=== PATIENT | female | born 1985 | race Caucasian/White ===

== ENCOUNTER → 2016-07-15 | Outpatient (CLI) | payer OTHER ==
[~2016-07-15] MED LIST: AMITRIPTYLINE25 MG PO; ATARAX10 MG PO; CIPRO 500MG TA500 MG PO; FLORINEF ACETA0.1 MG PO; HYOPHEN1 TAB PO; METOPROLOL SUCC25 M1 PO; MUCINEX DM 30 M1 TE1 PO; PREDNISONE 5MG5 MG PO; TESSALON PERLE100 MG PO; VENTOLIN0.09 MG INH
== END ==
LOC: LAB 09:00
DX: R30.0 Dysuria (principal)

== ENCOUNTER → 2016-07-20 | Outpatient (CLI) | payer OTHER | LOC: LAB 12:57 | DX: Z09 Encounter for follow-up examination after completed treatment for conditions other than malignant neoplasm (principal); Z20.6 Contact with and (suspected) exposure to human immunodeficiency virus [HIV] ==

== ENCOUNTER → 2016-07-21 | Outpatient (CLI) | payer OTHER ==
[2016-07-21 14:27] VITALS: BP 115/85
== END ==
LOC: AMSURD 12:28
DX: R13.10 Dysphagia, unspecified (principal); R55 Syncope and collapse; K31.89 Other diseases of stomach and duodenum; K22.4 Dyskinesia of esophagus

== ENCOUNTER → 2016-07-27 | Outpatient (CLI) | payer OTHER | LOC: LAB 09:06 | DX: R13.14 Dysphagia, pharyngoesophageal phase (principal) ==

== ENCOUNTER → 2016-09-06 | Outpatient (CLI) | payer OTHER | LOC: VAS 17:06 | DX: R06.09 Other forms of dyspnea (principal); I34.0 Nonrheumatic mitral (valve) insufficiency ==

== ENCOUNTER → 2016-09-23 | Outpatient (CLI) | payer OTHER | LOC: RAD 08:47 | DX: R06.00 Dyspnea, unspecified (principal) ==

== ENCOUNTER → 2016-10-04 | Outpatient (CLI) | payer OTHER ==
[2016-07-21 14:27] VITALS: BP 115/85
== END ==
LOC: LAB 11:10
DX: E27.40 Unspecified adrenocortical insufficiency (principal)

== ENCOUNTER → 2016-10-18 | Outpatient (CLI) | payer OTHER ==
[2016-07-21 14:27] VITALS: BP 115/85
== END ==
LOC: LAB 11:01
DX: Z11.4 Encounter for screening for human immunodeficiency virus [HIV] (principal); B19.20 Unspecified viral hepatitis C without hepatic coma; Z02.83 Encounter for blood-alcohol and blood-drug test

== ENCOUNTER → 2016-12-06 | Outpatient (CLI) | payer OTHER ==
[2016-07-21 14:27] VITALS: BP 115/85
== END ==
LOC: LAB 12:23
DX: R30.0 Dysuria (principal)

== ENCOUNTER → 2017-01-24 | Outpatient (CLI) | payer OTHER ==
[2016-07-21 14:27] VITALS: BP 115/85
== END ==
LOC: LAB 06:16
DX: R30.0 Dysuria (principal); R35.0 Frequency of micturition

== ENCOUNTER → 2017-10-24 | Outpatient (CLI) | payer OTHER ==
[2016-07-21 14:27] VITALS: BP 115/85
[2017-10-24 11:43] LABS: URINE APPEARANCE CLEAR; URINE BILIRUBIN NEGATIVE (NEGATIVE); URINE COLOR YELLOW; URINE GLUCOSE NEGATIVE (NEGATIVE); URINE KETONE NEGATIVE (NEGATIVE); URINE PROTEIN(semi-quant) NEGATIVE (NEGATIVE)
[2017-10-24 11:44] LABS: URINE BLOOD 50 ery/uL (NEGATIVE); URINE LEUKOCYTE ESTERASE 1+ (NEGATIVE); URINE NITRATE NEGATIVE (NEGATIVE); URINE UROBILINOGEN NORMAL (NORMAL); URINE WBC 16-30 /hpf (0-3)
== END ==
LOC: LAB 11:40
PROVIDERS: Internal Medicine
DX: R31.9 Hematuria, unspecified (principal); N30.10 Interstitial cystitis (chronic) without hematuria

== ENCOUNTER → 2018-01-17 | Outpatient (CLI) | payer OTHER ==
[2016-07-21 14:27] VITALS: BP 115/85
[2018-01-17 12:41] LABS: URINE APPEARANCE CLEAR; URINE COLOR YELLOW
[2018-01-17 12:42] LABS: URINE BILIRUBIN NEGATIVE (NEGATIVE); URINE BLOOD 250 ery/uL (NEGATIVE); URINE GLUCOSE NEGATIVE (NEGATIVE); URINE KETONE NEGATIVE (NEGATIVE); URINE LEUKOCYTE ESTERASE 1+ (NEGATIVE); URINE NITRATE NEGATIVE (NEGATIVE); URINE PROTEIN(semi-quant) TRACE mg/dL (NEGATIVE); URINE UROBILINOGEN NORMAL (NORMAL)
== END ==
LOC: LAB 12:38
PROVIDERS: Nurse Practitioner
DX: R39.15 Urgency of urination (principal); R35.0 Frequency of micturition; R30.0 Dysuria

== ENCOUNTER → 2018-02-16 | Outpatient (CLI) | payer OTHER ==
[2016-07-21 14:27] VITALS: BP 115/85
== END ==
LOC: LAB 08:09
DX: Z00.00 Encounter for general adult medical examination without abnormal findings (principal)

== ENCOUNTER → 2018-09-28 | Outpatient (CLI) | payer OTHER ==
[2016-07-21 14:27] VITALS: BP 115/85
[2018-09-28 13:10] LABS: CLUE CELLS NOT OBSERVED (Not Observd)
== END ==
LOC: LAB 13:08
PROVIDERS: Physician Assistant
DX: R10.9 Unspecified abdominal pain (principal)
CPT/HCPCS: Q0111

== ENCOUNTER 2018-09-29 11:26 | Emergency (ER) | payer OTHER ==
[2016-07-21 14:27] VITALS: BP 115/85
== END 2018-09-29 13:50 | disposition left against medical advice (07) ==
LOC: ED 11:26
DX: Z72.89 Other problems related to lifestyle (principal)

== ENCOUNTER → 2018-10-01 | Outpatient (CLI) | payer OTHER ==
[2016-07-21 14:27] VITALS: BP 115/85
== END ==
LOC: RAD 13:32
DX: N83.201 Unspecified ovarian cyst, right side (principal); N94.10 Unspecified dyspareunia; Z90.710 Acquired absence of both cervix and uterus

== ENCOUNTER → 2019-04-09 | Outpatient (CLI) | payer OTHER ==
[2016-07-21 14:27] VITALS: BP 115/85
[2019-04-09 06:43] LABS: EOS # 0.1 (0.04-0.40); EOS % 1.6 % (1.0-5.0); HEMATOCRIT 45.6 % (37.0-47.0); HEMOGLOBIN 15.1 g/dL (12.5-16.0); LYMPH# 2.8 (1.50-4.00); MEAN CELL VOLUME 90 fl (78-100); MEAN CORPUSCULAR HEMOGLOBIN 30 pg (27-31); MEAN CORPUSCULAR HGB CONC 33 g/dL (33-37); MONO # 0.7 (0.20-0.80); NEU # 3.3 (1.40-6.50); PLATELET COUNT 279 K/mm3 (130-400); RED BLOOD COUNT 5.06 M/mm3 (4.10-5.30); RED CELL DISTRIBUTION WIDTH 12.6 % (11.5-14.5); WHITE BLOOD COUNT 6.9 K/mm3 (4.8-10.8)
[2019-04-09 06:45] LABS: ALBUMIN 4.5 g/dL (3.5-5.0); POTASSIUM 4.5 mmol/L (3.5-5.1)
[2019-04-09 06:46] LABS: CALCIUM 9.7 mg/dL (8.3-10.5)
[2019-04-09 06:47] LABS: TOTAL PROTEIN 7.5 g/dL (6.4-8.3)
[2019-04-09 07:51] LABS: ERYTHROCYTE SEDIMENTATION RATE 2 mm/hr (0-20)
[2019-04-09 11:04] LABS: URINE APPEARANCE CLEAR; URINE BILIRUBIN NEGATIVE (NEGATIVE); URINE BLOOD 50 ery/uL (NEGATIVE); URINE COLOR YELLOW; URINE GLUCOSE NEGATIVE (NEGATIVE); URINE KETONE NEGATIVE (NEGATIVE); URINE LEUKOCYTE ESTERASE NEGATIVE (NEGATIVE); URINE MUCUS PRESENT (NOT PRESENT); URINE NITRATE NEGATIVE (NEGATIVE); URINE PROTEIN(semi-quant) NEGATIVE (NEGATIVE); URINE UROBILINOGEN NORMAL (NORMAL); URINE WBC 0-1 /hpf (0-3)
== END ==
LOC: LAB 06:36
PROVIDERS: Internal Medicine
DX: Z00.00 Encounter for general adult medical examination without abnormal findings (principal)

== ENCOUNTER → 2019-05-15 | Outpatient (CLI) | payer OTHER ==
[~2019-05-15] VITALS: Ht 170.2 cm; Wt 53.2 kg
[~2019-05-15] MED LIST changes: +CYCLOBENZ5 MG PO; +FLORINEF 00.1 MG/TAB PO; +VALIUM 5MG T5 MG/TAB PO
[2019-05-15 11:14] VITALS: BP 137/61
[2019-05-15 11:59] VITALS: BP 108/63
== END ==
LOC: AMSURD 10:23
DX: R51 Headache (principal)
CPT/HCPCS: J1200; J2405; J7030

== ENCOUNTER 2019-05-16 03:32 | Emergency (ER) | payer OTHER ==
[~2019-05-16 03:32] MED LIST changes: -CYCLOBENZ5 MG PO; -FLORINEF 00.1 MG/TAB PO; -VALIUM 5MG T5 MG/TAB PO
[2019-05-16] MEDS ORDERED: FLORINEF 00.1 MG/TAB PO (03:45)
[2019-05-16] MEDS ORDERED: CYCLOBENZ5 MG PO (03:45)
[2019-05-16 04:47] LABS: EOS # 0.1 (0.04-0.40); EOS % 1.2 % (1.0-5.0); HEMATOCRIT 36.5 % (37.0-47.0); LYMPH# 2.4 (1.50-4.00); MEAN CELL VOLUME 93 fl (78-100); MEAN CORPUSCULAR HEMOGLOBIN 31 pg (27-31); MEAN CORPUSCULAR HGB CONC 33 g/dL (33-37); MEAN PLATELET VOLUME 8.7 fl (7.4-10.4); MONO # 0.6 (0.20-0.80); NEU # 2.8 (1.40-6.50); PLATELET COUNT 221 K/mm3 (130-400); RED BLOOD COUNT 3.94 M/mm3 (4.10-5.30); RED CELL DISTRIBUTION WIDTH 12.5 % (11.5-14.5); WHITE BLOOD COUNT 5.8 K/mm3 (4.8-10.8)
[2019-05-16 04:54] LABS: ALBUMIN 3.6 g/dL (3.5-5.0); POTASSIUM 3.8 mmol/L (3.5-5.1)
[2019-05-16 04:55] LABS: CALCIUM 8.6 mg/dL (8.3-10.5)
[2019-05-16 04:56] LABS: TOTAL PROTEIN 5.6 g/dL (6.4-8.3)
[2019-05-16 04:58] LABS: TOTAL BILIRUBIN 0.5 mg/dL (0.2-1.2)
[2019-05-16] MEDS ORDERED: VALIUM 5MG T5 MG/TAB PO (05:23)
[2019-05-16 05:27] VITALS: BP 117/82
== END 2019-05-16 05:28 | disposition home or self-care (01) ==
LOC: ED 03:32
PROVIDERS: Physician Assistant
DX: R51 Headache (principal); M62.838 Other muscle spasm; Z88.8 Allergy status to other drugs, medicaments and biological substances; Z90.710 Acquired absence of both cervix and uterus

== ENCOUNTER → 2019-05-24 | Outpatient (CLI) | payer OTHER ==
[2019-05-16 05:27] VITALS: BP 117/82
[~2019-05-24] MED LIST changes: +CYCLOBENZ5 MG PO; +FLORINEF 00.1 MG/TAB PO; +VALIUM 5MG T5 MG/TAB PO
== END ==
LOC: RAD 14:18
DX: S16.1XXA Strain of muscle, fascia and tendon at neck level, initial encounter (principal); M41.84 Other forms of scoliosis, thoracic region

== ENCOUNTER → 2019-05-29 | Outpatient (CLI) | payer OTHER ==
[2019-05-16 05:27] VITALS: BP 117/82
== END ==
LOC: RAD 08:02
DX: M47.812 Spondylosis without myelopathy or radiculopathy, cervical region (principal); G43.909 Migraine, unspecified, not intractable, without status migrainosus

== ENCOUNTER 2019-06-18 14:30 | Outpatient (RCR) | payer OTHER | END 2019-06-18 15:00 | disposition still patient (30) | LOC: PT 14:30 | DX: G43.909 Migraine, unspecified, not intractable, without status migrainosus (principal); S16.1XXA Strain of muscle, fascia and tendon at neck level, initial encounter; M54.6 Pain in thoracic spine ==

== ENCOUNTER → 2019-07-01 | Outpatient (CLI) | payer OTHER | LOC: RAD 10:26 | DX: S16.1XXA Strain of muscle, fascia and tendon at neck level, initial encounter (principal) ==

== ENCOUNTER → 2019-07-23 | Outpatient (CLI) | payer OTHER ==
[2019-07-23 14:49] LABS: HEMOGLOBIN 14.7 g/dL (12.5-16.0); MEAN CELL VOLUME 92 fl (78-100); MEAN CORPUSCULAR HEMOGLOBIN 30 pg (27-31); MEAN CORPUSCULAR HGB CONC 33 g/dL (33-37); MEAN PLATELET VOLUME 8.8 fl (7.4-10.4); PLATELET COUNT 273 K/mm3 (130-400); RED CELL DISTRIBUTION WIDTH 13.2 % (11.5-14.5)
[2019-07-23 15:00] LABS: POTASSIUM 4.4 mmol/L (3.5-5.1)
[2019-07-23 15:02] LABS: TOTAL PROTEIN 7.8 g/dL (6.4-8.3)
[2019-07-23 15:04] LABS: TOTAL BILIRUBIN 0.6 mg/dL (0.2-1.2)
[2019-07-23 15:33] LABS: URINE APPEARANCE CLEAR; URINE BILIRUBIN NEGATIVE (NEGATIVE); URINE BLOOD TRACE (NEGATIVE); URINE COLOR YELLOW; URINE GLUCOSE NEGATIVE (NEGATIVE); URINE KETONE NEGATIVE (NEGATIVE); URINE LEUKOCYTE ESTERASE NEGATIVE (NEGATIVE); URINE NITRATE NEGATIVE (NEGATIVE); URINE PROTEIN(semi-quant) TRACE mg/dL (NEGATIVE); URINE UROBILINOGEN NORMAL (NORMAL); URINE WBC 0-1 /hpf (0-3)
[2019-07-24 06:24] LABS: BAND 1 % (0-10)
[2019-07-24 06:25] LABS: LYMPHOCYTE 14 % (20-51); MONOCYTE 4 % (3-10); NEUTROPHILS 81 % (42-75)
[2019-07-24 14:00] LABS: ANA SCREEN with REFLEX Negative (Negative)
== END ==
LOC: LAB 14:38
PROVIDERS: Nurse Practitioner
DX: R10.9 Unspecified abdominal pain (principal)

== ENCOUNTER → 2019-07-26 | Outpatient (CLI) | payer OTHER | LOC: RAD 09:03 | DX: N83.8 Other noninflammatory disorders of ovary, fallopian tube and broad ligament (principal); Z90.710 Acquired absence of both cervix and uterus | CPT/HCPCS: Q9967 ==

== ENCOUNTER → 2019-07-29 | Outpatient (CLI) | payer OTHER ==
[2019-07-29 13:24] LABS: POTASSIUM 4.4 mmol/L (3.5-5.1)
[2019-07-29 13:32] LABS: MAGNESIUM 2.16 mg/dL (1.60-2.60)
== END ==
LOC: LAB 13:08
PROVIDERS: Internal Medicine
DX: E27.40 Unspecified adrenocortical insufficiency (principal)

== ENCOUNTER → 2019-08-01 | Outpatient (CLI) | payer OTHER ==
[2019-08-02 00:35] LABS: CALCIUM, IONIZED, SERUM 1.41 mmol/L (1.19-1.41)
== END ==
LOC: LAB 12:10
PROVIDERS: Internal Medicine
DX: R25.3 Fasciculation (principal); R53.1 Weakness; R53.83 Other fatigue; R63.4 Abnormal weight loss

== ENCOUNTER → 2019-08-05 | Outpatient (CLI) | payer OTHER | LOC: LAB 16:11 | DX: Z01.89 Encounter for other specified special examinations (principal) ==

== ENCOUNTER → 2019-08-14 | Outpatient (CLI) | payer OTHER | LOC: RAD 09:52 | DX: M62.81 Muscle weakness (generalized) (principal); R51 Headache; R25.3 Fasciculation | CPT/HCPCS: A9585 ==

== ENCOUNTER → 2019-10-03 | Outpatient (CLI) | payer OTHER ==
[~2019-10-03] VITALS: Ht 170.2 cm; Wt 53.2 kg
[2019-10-03 13:10] VITALS: BP 110/56
[2019-10-03 13:20] VITALS: BP 110/56
[2019-10-03 14:39] VITALS: BP 108/68
[2019-10-04 17:49] LABS: ADRENOCORTICOTROPIC HORMONE 16 pg/mL (5-27)
== END ==
LOC: AMSURD 12:53 → LAB 12:53
PROVIDERS: Internal Medicine
DX: E27.1 Primary adrenocortical insufficiency (principal)
CPT/HCPCS: J0834

== ENCOUNTER → 2019-11-29 | Outpatient (CLI) | payer OTHER ==
[2019-10-03 14:39] VITALS: BP 108/68
== END ==
LOC: LAB 07:50
DX: M79.10 Myalgia, unspecified site (principal); R19.7 Diarrhea, unspecified; Z56.89 Other problems related to employment; Z20.828 Contact with and (suspected) exposure to other viral communicable diseases

== ENCOUNTER → 2020-01-08 | Outpatient (CLI) | payer OTHER ==
[2019-10-03 14:39] VITALS: BP 108/68
== END ==
LOC: LAB 13:23
DX: G72.9 Myopathy, unspecified (principal)

== ENCOUNTER → 2020-01-14 | Outpatient (CLI) | payer OTHER ==
[2019-10-03 14:39] VITALS: BP 108/68
== END ==
LOC: AMSURD 13:05
DX: Z01.812 Encounter for preprocedural laboratory examination (principal)

== ENCOUNTER → 2020-02-10 | Outpatient (CLI) | payer OTHER ==
[2019-10-03 14:39] VITALS: BP 108/68
[2020-02-10 07:28] LABS: EOS # 0.1 (0.04-0.40); EOS % 1.7 % (1.0-5.0); HEMOGLOBIN 13.8 g/dL (12.5-16.0); LYMPH# 2.3 (1.50-4.00); MEAN CELL VOLUME 91 fl (78-100); MEAN CORPUSCULAR HEMOGLOBIN 30 pg (27-31); MEAN CORPUSCULAR HGB CONC 33 g/dL (33-37); MEAN PLATELET VOLUME 8.9 fl (7.4-10.4); MONO # 0.6 (0.20-0.80); PLATELET COUNT 267 K/mm3 (130-400); RED CELL DISTRIBUTION WIDTH 12.4 % (11.5-14.5)
[2020-02-10 07:41] LABS: ALBUMIN 4.2 g/dL (3.5-5.0); POTASSIUM 3.8 mmol/L (3.5-5.1); SODIUM 140 mmol/L (136-145)
[2020-02-10 07:42] LABS: CALCIUM 8.9 mg/dL (8.3-10.5)
[2020-02-10 07:44] LABS: GLUCOSE 76 mg/dL (65-105); TOTAL PROTEIN 6.7 g/dL (6.4-8.3)
[2020-02-10 07:45] LABS: CARBON DIOXIDE 25 mmol/L (22-29); TOTAL BILIRUBIN 0.4 mg/dL (0.2-1.2)
[2020-02-10 07:49] LABS: AST-SGOT 23 U/L (5-34)
[2020-02-10 07:50] LABS: ALT/SGPT 20 U/L (0-55)
[2020-02-10 07:51] LABS: MAGNESIUM 2.09 mg/dL (1.60-2.60)
[2020-02-10 08:18] LABS: ERYTHROCYTE SEDIMENTATION RATE 0 mm/hr (0-20)
[2020-02-10 18:29] LABS: CALCIUM, IONIZED, SERUM 1.31 mmol/L (1.19-1.41)
== END ==
LOC: LAB 07:07
PROVIDERS: Internal Medicine
DX: M79.10 Myalgia, unspecified site (principal); R25.3 Fasciculation; R10.9 Unspecified abdominal pain; R63.4 Abnormal weight loss; R53.1 Weakness; R53.83 Other fatigue

== ENCOUNTER → 2020-08-14 | Outpatient (CLI) | payer OTHER ==
[2019-10-03 14:39] VITALS: BP 108/68
[~2020-08-14] MED LIST changes: +FIORICET 325 MG1 TAB PO; +ZOLOFT 50MG50 MG PO
== END ==
LOC: RAD 08:01
DX: M48.07 Spinal stenosis, lumbosacral region (principal); M41.84 Other forms of scoliosis, thoracic region

== ENCOUNTER → 2020-09-16 | Outpatient (CLI) | payer OTHER ==
[2019-10-03 14:39] VITALS: BP 108/68
[2020-09-16 14:06] LABS: ALBUMIN 4.7 g/dL (3.5-5.0); CALCIUM 9.4 mg/dL (8.3-10.5); HEMATOCRIT 45.9 % (37.0-47.0); HEMOGLOBIN 14.6 g/dL (12.5-16.0); MEAN CELL VOLUME 92 fl (78-100); MEAN CORPUSCULAR HEMOGLOBIN 29 pg (27-31); MEAN CORPUSCULAR HGB CONC 32 g/dL (33-37); PLATELET COUNT 255 K/mm3 (130-400); POTASSIUM 4.5 mmol/L (3.5-5.1); RED BLOOD COUNT 4.99 M/mm3 (4.10-5.30); RED CELL DISTRIBUTION WIDTH 13.5 % (11.5-14.5); TOTAL BILIRUBIN 0.4 mg/dL (0.2-1.2); TOTAL PROTEIN 7.7 g/dL (6.4-8.3); WHITE BLOOD COUNT 11.8 K/mm3 (4.8-10.8)
[2020-09-16 14:07] LABS: BAND 6 % (0-10); LYMPHOCYTE 12 % (20-51); MONOCYTE 4 % (3-10); NEUTROPHILS 78 % (42-75)
== END ==
LOC: LAB 13:57 → RAD 13:57
PROVIDERS: Physician Assistant
DX: R10.9 Unspecified abdominal pain (principal); R19.7 Diarrhea, unspecified
CPT/HCPCS: Q9967

== ENCOUNTER → 2020-09-21 | Outpatient (CLI) | payer OTHER ==
[2019-10-03 14:39] VITALS: BP 108/68
== END ==
LOC: LAB 07:35
DX: R19.7 Diarrhea, unspecified (principal)

== ENCOUNTER 2020-11-08 19:05 | Emergency (ER) | payer OTHER ==
[~2020-11-08 19:05] MED LIST changes: -FIORICET 325 MG1 TAB PO; -ZOLOFT 50MG50 MG PO
[2020-11-08] MEDS ORDERED: ZOLOFT 50MG50 MG PO (19:33)
[2020-11-08] MEDS ORDERED: FIORICET 325 MG1 TAB PO (19:38)
[2020-11-08 22:40] VITALS: BP 104/80
== END 2020-11-08 22:40 | disposition home or self-care (01) ==
LOC: ED 19:05
DX: R51.9 Headache, unspecified (principal); Z86.69 Personal history of other diseases of the nervous system and sense organs
CPT/HCPCS: J1885; J2360

== ENCOUNTER → 2020-11-09 | Outpatient (CLI) | payer OTHER ==
[2020-11-08 22:40] VITALS: BP 104/80
[~2020-11-09] MED LIST changes: +FIORICET 325 MG1 TAB PO; +ZOLOFT 50MG50 MG PO
[2020-11-10 21:55] LABS: LYME DISEASE EIA Negative (Negative)
[2020-11-11 00:15] LABS: E. CHAFFEENSIS IGG AB <1:64 titer (<1:64)
[2020-11-11 15:55] LABS: Q FEVER PHASE I IGG ANTIBODY <1:16 (<1:16); Q FEVER PHASE I IGM ANTIBODY <1:16 (<1:16)
== END ==
LOC: LAB 07:55
PROVIDERS: Nurse Practitioner Family
DX: R51.9 Headache, unspecified (principal)

== ENCOUNTER 2020-11-10 14:03 | Outpatient (RCR) | payer OTHER | END 2020-11-19 17:00 | disposition home or self-care (01) | LOC: PT 14:03 | DX: M79.18 Myalgia, other site (principal); G24.3 Spasmodic torticollis ==

== ENCOUNTER → 2020-12-09 | Outpatient (CLI) | payer OTHER | LOC: LAB 10:19 | DX: R68.89 Other general symptoms and signs (principal) ==

== ENCOUNTER → 2020-12-17 | Outpatient (CLI) | payer OTHER | LOC: LAB 09:35 | DX: R94.6 Abnormal results of thyroid function studies (principal) ==

== ENCOUNTER → 2020-12-25 | Outpatient (CLI) | payer OTHER ==
[2020-12-25 08:23] LABS: ALBUMIN 4.2 g/dL (3.5-5.0); POTASSIUM 3.8 mmol/L (3.5-5.1)
[2020-12-25 08:25] LABS: CALCIUM 8.9 mg/dL (8.3-10.5)
[2020-12-25 08:26] LABS: TOTAL PROTEIN 7.1 g/dL (6.4-8.3)
[2020-12-25 08:28] LABS: TOTAL BILIRUBIN 0.9 mg/dL (0.2-1.2)
[2020-12-25 23:32] LABS: CORTISOL, AM (0800) 8 ug/dL (3-20)
[2020-12-26 04:59] LABS: T3 TOTAL 91 ng/dL (60-180)
[2020-12-30 18:47] LABS: ADRENOCORTICOTROPIC HORMONE 14 pg/mL (5-27)
== END ==
LOC: LAB 07:14
PROVIDERS: Physician Assistant
DX: Z13.29 Encounter for screening for other suspected endocrine disorder (principal); E06.3 Autoimmune thyroiditis

== ENCOUNTER → 2021-02-16 | Outpatient (CLI) | payer OTHER ==
[2021-02-16 07:52] LABS: POTASSIUM 3.5 mmol/L (3.5-5.1)
[2021-02-16 07:53] LABS: CALCIUM 9.1 mg/dL (8.3-10.5)
[2021-02-16 07:55] LABS: TOTAL PROTEIN 6.7 g/dL (6.4-8.3)
[2021-02-16 07:56] LABS: TOTAL BILIRUBIN 0.4 mg/dL (0.2-1.2)
[2021-02-16 15:43] LABS: CORTISOL, AM (0800) 9 ug/dL (3-20)
[2021-02-17 04:47] LABS: T3 TOTAL 87 ng/dL (60-180)
[2021-02-17 18:40] LABS: ADRENOCORTICOTROPIC HORMONE 16 pg/mL (5-27)
== END ==
LOC: LAB 07:25
PROVIDERS: Internal Medicine
DX: E03.9 Hypothyroidism, unspecified (principal); E55.9 Vitamin D deficiency, unspecified; R53.82 Chronic fatigue, unspecified